=== PATIENT | female | born 1935 | race Caucasian/White ===

== ENCOUNTER 2017-03-08 05:33 | Inpatient (IN) ==
[2017-03-08] MEDS ORDERED: ONDANSETRON 4 MG/2 ML VIAL IV STA ×2 (06:06→08:45)
--- NOTE | 2017-03-08 06:16 | Emergency Department Note ---
Vishal Mar Manpreet, am scribing for, and in the presence of, Anshul Loaiza MD 06: 11. Fadia Mar James D, MD, personally performed the services described in this documentation, ascribed by Laurent Rodgers in my presence, and it is both accurate and complete 614 . Arrival - Arrival Chief Complaint: Abdominal / Flank Pain Stated Complaint: right side pain nausea ED Nursing Triage Note: TO ER PER WHEELCHAIR WITH C/O RIGHT LOWER QUADRANT ABD PAIN FOR THE PAST FEW DAYS BUT BECAME WORSE LAST NIGHT/EARLY THIS AM. ALSO REPORTS THAT SHE HAS BEEN VERY NAUSEATED SINCE PAIN HAS BECOME WORSE BUT HAS NOT VOMITTED. Mode of Arrival: Wheelchair Limitations: No Limitations Source: Patient Time Seen by Provider: 03/08/17 06:02 - History of Present Illness HPI Narrative: Pt is a 81 y/o female, with PMHx of HTN, NIDDM, asthma, COPD, and bronchitis, who presents to the ED with CC of right sided Abd pain onset 03/06/17 but worsened last night. Pt c/o nausea with the pain but denies V/D, dysuria, or respiratory problems. Pt states she is on 2 inhalers at home for her "breathing problems." Dr. Treadwell is pt's PCP. No other pains/complaints reported to the ED> Onset (ago): day(s) (03/06/17) Consistency: constant Severity: moderate Severity scale (1-10): 3 Quality: cramping Allergies/Adverse Reactions: Allergies Allergy/AdvReac Type Severity Reaction Status Date / Time Iodinated Contrast Media - Allergy Unknown Difficulty Verified 03/08/17 05:55 Oral and Breathing [Iodinated Contrast Media - IV Dye] meperidine [From Demerol] Allergy RASH Verified 03/08/17 05:56 Home Medications: Home Medications Medication Instructions Recorded Confirmed Type Escitalopram [Lexapro] 20 mg PO DAILY 10/12/15 03/08/17 History Fluticasone/Salmeterol 500-50 1 puff INH BID 10/12/15 03/08/17 History [Advair 500-50] Levothyroxine Tab [Synthroid Tab] 112 mcg PO DAILY@0700 10/12/15 03/08/17 History Methocarbamol Tab [Robaxin Tab] 1,000 mg PO BID 10/12/15 03/08/17 History Montelukast Tab [Singulair Tab] 10 mg PO DAILY 10/12/15 03/08/17 History Potassium Chloride [K-Tab ER] 10 meq PO DAILY 10/12/15 03/08/17 History Ranitidine Tab [Zantac Tab] 150 mg PO BEDTIME 10/12/15 03/08/17 History Simvastatin [Zocor] 20 mg PO BEDTIME 10/12/15 03/08/17 History Tiotropium Inhalation [Spiriva 18 mcg INH DAILY 10/12/15 03/08/17 History Handihaler] Triamterene/Hctz 75-50 Tab 0.5 tablet PO DAILY 10/12/15 03/08/17 History [Maxzide 75-50] clonazePAM TAB [KlonoPIN] 0.5 mg PO DAILY 10/12/15 03/08/17 History Atenolol 50 mg PO BID 03/08/17 03/08/17 History Eszopiclone 3 mg PO BEDTIME 03/08/17 03/08/17 History Ferrous Sulfate Tab [Feosol 325 mg PO DAILY 03/08/17 03/08/17 History Original Tab] Pantoprazole Tab [Protonix Tab] 40 mg PO DAILY 03/08/17 03/08/17 History cloNIDine TAB [Catapres Tab] 0.1 mg PO BID 03/08/17 03/08/17 History guaiFENesin ER TAB [Mucinex] 600 mg PO BID PRN 03/08/17 03/08/17 History metFORMIN [Glucophage] 500 mg PO BID W/MEALS 03/08/17 03/08/17 History Review of System - Review of System 12 point system: reviewed and no additional remarkable complaints except as stated - Review of System Constitutional: Absent: chills, diaphoresis, fever Respiratory: Absent: cough, respiratory distress Cardiovascular: Absent: chest pain Gastrointestinal: Present: abdominal pain, nausea. Absent: vomiting, diarrhea Musculoskeletal: Absent: back pain, leg pain Neurological: Absent: headache, weakness, numbness, paresthesias Medical,Surgical,& Family Hx - Medical History Cardio: History of: Hypertension Endocrine: History of: Diabetes Mellitus (NIDDM) Respiratory: History of: Asthma, Bronchitis, COPD Gastrointestinal: History of: GERD - Social History Smoking Status: Never smoker Frequency of Alcohol Use: None Type of Drug Use: None Exam Vital Signs: Vital Signs Temperature 97.1 F L 03/08/17 05:43 Pulse Rate 72 03/08/17 11:43 Respiratory Rate 18 03/08/17 11:43 Blood Pressure 196/81 03/08/17 11:43 O2 Sat by Pulse Oximetry 95 03/08/17 11:43 GENERAL: This is a well-nourished well-developed white female in no apparent distress. VITAL SIGNS: Reviewed HEENT: Head is atraumatic and normocephalic. Pupils are equal round react to light. Extraocular movements are intact. Oropharynx is benign with moist mucous membranes. NECK: Neck is soft and supple without tenderness. There are no masses. There is no lymphadenopathy. LUNGS: Lungs are clear to auscultation. Chest rises symmetrically. There is no chest wall tenderness. CV: Heart is regular rate and rhythm without murmurs rubs or gallops. ABDOMEN: Abdomen is soft, tender to palpation right lower quadrant without rebound or guarding. There are no abdominal abnormal masses palpated. There is no organomegaly. Bowel sounds are present and active. SKIN: Skin is warm and dry. No rash. EXTREMITIES: Patient has full range of motion without tenderness. There is no pedal edema. NEUROLOGIC: Awake alert and oriented 4. Cranial nerves II through XII are intact. Motor is 5 over 5 in all extremities bilaterally. Course - Consultations Consultation #1: Discussed with Dr. holguin. Patient will be seen in the emergency department. Time: 09:28 Consultation #2: Discussed with hospitalist. Patient will be admitted to their service. Time: 12:08 Results - Labs CBC & BMP: 03/08/17 06:21 03/08/17 06:21 Lab Results: I have reviewed the patients labs - Diagnostic Findings Procedure: Abdominal x-ray: image reviewed by me (Nonspecific gas pattern, no free air.), Chest x-ray: image reviewed by me (No infiltrates, no pleural effusions.), CT Abdomen and Pelvis: image reviewed by me (No acute intra- abdominal pathology peer) Disposition Clinical Impression: Right lower quadrant abdominal pain, Possible diverticulitis Case discussed with: patient, patient's family Condition: Stable
[2017-03-08 06:47] LABS: Basophils # 0.1 10*3/uL (0.0-0.2); Basophils % 0.4 % (0.0-0.8); Eosinophils # 0.1 10*3/uL (0.0-0.87); Eosinophils % 0.8 % (0.00-10.9); Hematocrit 39.1 VOL% (35.7-47.0); Hemoglobin 13.7 GM/DL (12.0-16.0); Immature Granulocytes % 0.3 %; Immature Granulocytes Absolute 0.04 #; Lymphocytes # 4.4 10*3/uL (1.4-4.0); Lymphocytes % 36.5 % (21.3-54.2); Mean Corpuscular Hemoglobin 31 PG (27-34); Mean Corpuscular Volume 89.5 FL (87-102); Mean Platelet Volume 10.6 FL (9.6-12.0); Monocytes # 0.9 10*3/uL (0.11-0.8); Monocytes % 7.3 % (1.7-12.7); Neutrophils # 6.7 10*3/uL (1.4-7.4); Neutrophils % 54.7 % (38.7-73.9); Platelet Count 281 T/CUMM (130-400); Red Blood Count 4.37 MC/CUMM (3.8-5.5); Red Cell Distribution Width 11.6 % (9.3-17.3); White Blood Count 12.2 T/CUMM (4-12)
[2017-03-08] MEDS ORDERED: ONDANSETRON 4 MG/2 ML VIAL ONE ×2 (07:01→08:49)
[2017-03-08] MEDS ORDERED: hydrALAZINE 20 MG/1 ML VIAL IV STA (07:19)
[2017-03-08] MEDS ORDERED: hydrALAZINE 20 MG/1 ML VIAL ONE (07:23)
[2017-03-08 07:28] LABS: Apearance,Urine CLEAR (Clear); Bacteria,Urine Occasional /HPF (Few); Bilirubin,Urine Negative (Negative); Blood, Urine Negative (Negative); Glucose,Urine (UA) 50 mg/dL (Negative); Ketones,Urine Negative (Negative); Mucus,Urine Occasional /LPF (Occasional); Nitrite,Urine Negative (Negative); Protein,Urine 100 MG/DL; RBC,Urine 1 /HPF (0-4); Squamous Epithelial Cell,Urine Occasional /HPF (0-10); Urine Color Straw (Yellow); Urine Specific Gravity 1.009 (1.001-1.035); Urine Urobilinogen < 2.0 EU/DL (0.2-1.0); WBC,Urine <1 /HPF (0-6)
[2017-03-08 07:30] LABS: Albumin 3.8 G/DL (3.4-5.0); Bilirubin,Total 0.5 MG/DL (0.2-1.0); Calcium 9.4 MG/DL (8.5-10.1); Osmolality,Calculated 278.7 MOS/KG (273-304); Potassium 3.4 MMOL/L (3.5-5.1); Total Protein 7.1 G/DL (6.4-8.3)
--- NOTE | 2017-03-08 08:03 | CT Report ---
CT abdomen pelvis Indication: Abdominal pain Comparison: None available Technique: Axial CT imaging of the abdomen and pelvis is performed without contrast. Findings: Cardiac and lung bases are within normal limits CT abdomen: The liver spleen pancreas and adrenal glands are normal in size and density. No evidence of focal lesion is demonstrated in these solid organs. Kidneys are normal in size with numerous cyst similar to previous exam. No evidence of hydronephrosis or nephrolithiasis is seen. The bowel caliber is normal and no wall thickening or adjacent inflammatory change is seen. No evidence of free fluid or free air is present. CT pelvis: Multiple diverticula are present in the colon most prominent in the sigmoid colon. No evidence of diverticulitis is seen. Remaining pelvic bowel and bladder appear within normal limits. The pelvic organs show no evidence of abnormality. Impression: No evidence of acute process demonstrated. This CT exam was performed using one or more the following dose reduction techniques: Automated exposure control, adjustment of the MA and/or KV according to patient size, or use of iterative reconstruction technique. PROCEDURE INTERPRETED AT [facility] DEPARTMENT OF RADIOLOGY Final Report Signed by: Dr. Alexis Terrazas
--- NOTE | 2017-03-08 08:17 | XRay Report ---
EXAM: XR abdomen 2V CLINICAL INDICATION: Abdominal Pain COMPARISON: None Findings: No gastric distention. [No abnormally dilated small bowel loops are identified to suggest obstruction. No free intraperitoneal air.] Visceral shadows are normal. No abnormal focal soft tissue masses or calcific densities identified in the abdomen or pelvis. Degenerative changes throughout the spinal axis are noted. IMPRESSION: No acute findings PROCEDURE INTERPRETED AT [facility] DEPARTMENT OF RADIOLOGY Final Report Signed by: Gabe Echevarria
--- NOTE | 2017-03-08 08:19 | XRay Report ---
XR chest 1V portable Indication: Abdominal pain Comparison: 13 October 2015 Findings: The heart and mediastinum are normal in size and configuration. The pulmonary vascularity is normal in caliber. Lung volumes are increased with prominent bronchial markings. No lung infiltrates, effusions, pneumothorax or other abnormality is demonstrated. Impression: Chronic lung changes. No acute process or significant change. PROCEDURE INTERPRETED AT [facility] DEPARTMENT OF RADIOLOGY Final Report Signed by: Dr. Alexis Terrazas
[2017-03-08] MEDS ORDERED: HYDROmorphone 2 MG/1 ML VIAL ONE (09:35)
[2017-03-08] MEDS ORDERED: HYDROmorphone 2 MG/1 ML VIAL IV STA (09:36)
--- NOTE | 2017-03-08 10:37 | General Surgery Consult Note ---
Assessment and Plan (1) Right lower quadrant abdominal pain Status: Acute Assessment and plan: The patient is an 81-year-old female with past medical history of diverticulitis. Considering leukocytosis and patient presentation, I feel diverticulitis is the most likely diagnosis. No evidence of complications at this time. Recommend IV fluids, bowel rest with sips only, IV ciprofloxacin and Flagyl, and monitoring. Repeat CBC in a.m. Dr. Carlisle to follow. Current Visit: Yes History of Present Illness Chief complaint: RLQ pain History of present illness: Ms. Triplett is a 81 year old female with past medical history of diverticulitis, COPD, asthma, hypertension, and other comorbidities who follows with Dr. Treadwell who is presenting to the emergency department with 2-3 days of progressive right lower quadrant pain. Patient has received pain medication and is a fair historian: Her is at the bedside assisting. Reports she has right lower quadrant pain for 2-3 days which got significantly worse last night. She has a history of diverticulitis has been treated with oral antibiotics outpatient only. She reports never requiring any hospitalization. Regardless, she reports associated nausea without vomiting; no fever, chills, diarrhea, constipation, melena, or hematochezia. Home Medications Medication Instructions Recorded Confirmed Type Escitalopram [Lexapro] 20 mg PO DAILY 10/12/15 03/08/17 History Fluticasone/Salmeterol 500-50 1 puff INH BID 10/12/15 03/08/17 History [Advair 500-50] Levothyroxine Tab [Synthroid Tab] 112 mcg PO DAILY@0700 10/12/15 03/08/17 History Methocarbamol Tab [Robaxin Tab] 1,000 mg PO BID 10/12/15 03/08/17 History Montelukast Tab [Singulair Tab] 10 mg PO DAILY 10/12/15 03/08/17 History Potassium Chloride [K-Tab ER] 10 meq PO DAILY 10/12/15 03/08/17 History Ranitidine Tab [Zantac Tab] 150 mg PO BEDTIME 10/12/15 03/08/17 History Simvastatin [Zocor] 20 mg PO BEDTIME 10/12/15 03/08/17 History Tiotropium Inhalation [Spiriva 18 mcg INH DAILY 10/12/15 03/08/17 History Handihaler] Triamterene/Hctz 75-50 Tab 0.5 tablet PO DAILY 10/12/15 03/08/17 History [Maxzide 75-50] clonazePAM TAB [KlonoPIN] 0.5 mg PO DAILY 10/12/15 03/08/17 History Atenolol 50 mg PO BID 03/08/17 03/08/17 History Eszopiclone 3 mg PO BEDTIME 03/08/17 03/08/17 History Ferrous Sulfate Tab [Feosol 325 mg PO DAILY 03/08/17 03/08/17 History Original Tab] Pantoprazole Tab [Protonix Tab] 40 mg PO DAILY 03/08/17 03/08/17 History cloNIDine TAB [Catapres Tab] 0.1 mg PO BID 03/08/17 03/08/17 History guaiFENesin ER TAB [Mucinex] 600 mg PO BID PRN 03/08/17 03/08/17 History metFORMIN [Glucophage] 500 mg PO BID W/MEALS 03/08/17 03/08/17 History Allergies Allergy/AdvReac Type Severity Reaction Status Date / Time Iodinated Contrast Media - Allergy Unknown Difficulty Verified 03/08/17 05:55 Oral and Breathing [Iodinated Contrast Media - IV Dye] meperidine [From Demerol] Allergy RASH Verified 03/08/17 05:56 Medical,Surgical,& Family Hx - Medical History Cardio: History of: Hypertension Endocrine: History of: Diabetes Mellitus (NIDDM) Respiratory: History of: Asthma, Bronchitis, COPD Gastrointestinal: History of: Diverticulitis/ Diverticulosis, GERD - Surgical History Abdominal Surgeries: Surgical HX of: Appendectomy, Cholecystectomy Reproductive Surgeries: Surgical HX of;: Hysterectomy Orthopedic Surgeries: Surgical HX of;: Total Knee Replacement Additional Surgical History: Cataract - Family History Additional Family History: Mother glaucoma. Son diabetes. Father CAD and nephrolithiasis. Daughter with breast cancer. - Social History Smoking Status: Never smoker Frequency of Alcohol Use: None Type of Drug Use: None Marital Status: - Constitutional Constitutional: Present: as per HPI - Cardiovascular Cardiovascular: Absent: chest pain at rest, chest pain with activity, dyspnea on exertion, orthopnea - Respiratory Respiratory: Present: other (No change in pulmonary status) - Gastrointestinal Gastrointestinal: Present: as per HPI - Genitourinary Genitourinary: Absent: dysuria, flank pain, hematuria Hematologic/Lymphatic: Absent: easy bleeding, easy bruising Exam - Constitutional Vitals: Period Temp Pulse Resp BP Sys/Dean Pulse Ox Last 24 Hr 97.1 F-97.1 F 69-80 18-20 142-257/82-140 95-100 General appearance: no acute distress - Head Head exam: Present: atraumatic - Eye Eye exam: Absent: scleral icterus - Respiratory Respiratory exam: Present: other (Diminished breath sounds; no adventitious sounds noted) - Cardiovascular Cardiovascular exam: Present: RRR - GI/Abdominal GI/Abdominal exam: Present: normal bowel sounds, tenderness (Tenderness with deep palpation to the right lower quadrant; no rebound or guarding.), soft. Absent: distended - Extremities Exam Extremities exam: Absent: calf tenderness, edema - Neurological Exam Neurological exam: Present: alert, oriented X3 Speech: Present: normal - Skin Skin exam: Present: normal color Results - Labs CBC & BMP: 03/08/17 06:21 03/08/17 06:21 - Diagnostic Findings Procedure: CT Abdomen and Pelvis: image reviewed by me, report reviewed by me ( No IV contrast; diverticular disease noted; no obvious areas of ablation or abscess formation), X-ray: image reviewed by me, report reviewed by me ( Abdominal x-ray)
--- NOTE | 2017-03-08 12:45 | Hospitalist History & Physical ---
Assessment and Plan - Time spent with patient Time spent with patient: Greater than 30 minutes (1) Right lower quadrant abdominal pain Status: Acute Assessment and plan: Admit 03/08/17 Start IV levaquin and flagyl IV fluids Consult GI PRN pain management NPO except sips of water or ice and medications Discuss with Dr Long for further recommendations with care Current Visit: Yes History of Present Illness Chief complaint: right sided lower abdominal pain History of present illness: Ms. Triplett is a 81 year old white female w/PMHx HTN, DM, COPD, Asthma, bronchitis , diverticulosis/diverticulitis presented to the ED for further evaluation of right sided lower abdominal pain with associated nausea WITHOUT vomiting. Denies shortness of breath, chest pain, or diarrhea. IN ED: WBC 12.2, K 3.4, Glucose 147, Creatinine 1.10, urinalysis negative for infection. ABd xr: nothing acute. Abd/pel CT: nothing acute, multiple diverticula. CXR: nothing acute. General surgery was consulted and evaluated Ms Triplett with recommendation of fluids, cipro, flagyl, NPO except sips and repeat labs in a.m and greatly appreciate his assistance with patient. Hospital Medicine was consulted for admission and further evaluation and treatment. After discussion with Dr Loaiza in ED and Dr Long with Hospital Medicine and agree to admit patient for further evaluation and treatment of diverticulitis. Home Medications Medication Instructions Recorded Confirmed Type Escitalopram [Lexapro] 20 mg PO DAILY 10/12/15 03/08/17 History Fluticasone/Salmeterol 500-50 1 puff INH BID 10/12/15 03/08/17 History [Advair 500-50] Levothyroxine Tab [Synthroid Tab] 112 mcg PO DAILY@0700 10/12/15 03/08/17 History Methocarbamol Tab [Robaxin Tab] 1,000 mg PO BID 10/12/15 03/08/17 History Montelukast Tab [Singulair Tab] 10 mg PO DAILY 10/12/15 03/08/17 History Potassium Chloride [K-Tab ER] 10 meq PO DAILY 10/12/15 03/08/17 History Ranitidine Tab [Zantac Tab] 150 mg PO BEDTIME 10/12/15 03/08/17 History Simvastatin [Zocor] 20 mg PO BEDTIME 10/12/15 03/08/17 History Tiotropium Inhalation [Spiriva 18 mcg INH DAILY 10/12/15 03/08/17 History Handihaler] Triamterene/Hctz 75-50 Tab 0.5 tablet PO DAILY 10/12/15 03/08/17 History [Maxzide 75-50] clonazePAM TAB [KlonoPIN] 0.5 mg PO DAILY 10/12/15 03/08/17 History Atenolol 50 mg PO BID 03/08/17 03/08/17 History Eszopiclone 3 mg PO BEDTIME 03/08/17 03/08/17 History Ferrous Sulfate Tab [Feosol 325 mg PO DAILY 03/08/17 03/08/17 History Original Tab] Pantoprazole Tab [Protonix Tab] 40 mg PO DAILY 03/08/17 03/08/17 History cloNIDine TAB [Catapres Tab] 0.1 mg PO BID 03/08/17 03/08/17 History guaiFENesin ER TAB [Mucinex] 600 mg PO BID PRN 03/08/17 03/08/17 History metFORMIN [Glucophage] 500 mg PO BID W/MEALS 03/08/17 03/08/17 History Allergies Allergy/AdvReac Type Severity Reaction Status Date / Time Iodinated Contrast Media - Allergy Unknown Difficulty Verified 03/08/17 05:55 Oral and Breathing [Iodinated Contrast Media - IV Dye] meperidine [From Demerol] Allergy RASH Verified 03/08/17 05:56 Medical,Surgical,& Family Hx - Medical History Cardio: History of: Hypertension Endocrine: History of: Diabetes Mellitus (NIDDM) Respiratory: History of: Asthma, Bronchitis, COPD Gastrointestinal: History of: Diverticulitis/ Diverticulosis, GERD - Surgical History Abdominal Surgeries: Surgical HX of: Appendectomy, Cholecystectomy Reproductive Surgeries: Surgical HX of;: Hysterectomy Orthopedic Surgeries: Surgical HX of;: Total Knee Replacement - Social History Smoking Status: Never smoker Frequency of Alcohol Use: None Type of Drug Use: None Marital Status: Lives With:: Spouse Functional capacity: uses cane/walker 12 point system: reviewed and no additional remarkable complaints except as stated - Constitutional Constitutional: Absent: chills, fever(s) - Cardiovascular Cardiovascular: Absent: chest pain at rest, chest pain with activity, dyspnea, dyspnea on exertion - Gastrointestinal Gastrointestinal: Present: abdominal pain, nausea. Absent: constipation, diarrhea, hematochezia, vomiting - Genitourinary Genitourinary: Absent: dysuria, flank pain Exam - Constitutional Vitals: Period Temp Pulse Resp BP Sys/Dean Pulse Ox Last 24 Hr 97.1 F-97.1 F 69-80 18-20 142-257/72-140 95-100 General appearance: normal weight, no acute distress - Head Head exam: Present: normal inspection - Eye Eye exam: Present: EOMI Pupils: Present: JACE - Neck Neck exam: Present: normal inspection. Absent: thyromegaly - Respiratory Respiratory exam: Present: clear to auscultation bilaterally. Absent: rhonchi, stridor, wheezes - Cardiovascular Cardiovascular exam: Present: regular rate and rhythm - GI/Abdominal GI/Abdominal exam: Present: normal bowel sounds, tenderness, soft. Absent: firm , guarding, rebound - Extremities Exam Extremities exam: Present: normal inspection, full ROM. Absent: edema - Neurological Exam Neurological exam: Present: alert, oriented X3, CN II-XII intact - Psychiatric Psychiatric exam: Present: normal affect, normal mood. Absent: agitated, anxious - Skin Skin exam: Present: normal color, warm, dry Results - Labs CBC & BMP: 03/08/17 06:21 03/08/17 06:21 Lab Results: I have reviewed the past 24 hour labs - Diagnostic Findings Procedure: Abdominal x-ray: report reviewed by me (nothing acute), Chest x-ray: report reviewed by me (nothing acute), CT Abdomen and Pelvis: report reviewed by me (nothing acute;multiple diverticula)
[2017-03-08] MEDS ORDERED: MAGNESIUM SULF RIDER 2 GM in PREMIX 1 EACH IV PRN (13:43)
[2017-03-08] MEDS ORDERED: ONDANSETRON 4 MG/2 ML VIAL IV PRN (13:43)
[2017-03-08] MEDS ORDERED: MAGNESIUM SULF RIDER 4 GM in PREMIX 1 EACH IV PRN (13:43)
[2017-03-08] MEDS: SODIUM CHLORIDE 0.9% 1,000 ML IV SCH (15:26)
[2017-03-08] MEDS: CIPROFLOXACIN INJ 400 MG in PREMIX 1 EACH IV SCH (15:29)
[2017-03-08] MEDS: IPRATROPIUM 500 MCG/2.5 ML NEB RESP TX SCH ×2 (15:51→19:19)
[2017-03-08] MEDS: TRIAMTERENE/HCTZ 37.5-25 MG TABLET PO SCH (16:14)
[2017-03-08] MEDS: METHOCARBAMOL 500 MG TABLET PO SCH ×2 (16:14→21:01)
[2017-03-08] MEDS: cloNIDine 0.1 MG TABLET PO SCH ×2 (16:15→21:02)
[2017-03-08] MEDS: MONTELUKAST 10 MG TABLET PO SCH (16:15)
[2017-03-08] MEDS: clonazePAM 0.5 MG TABLET PO SCH (16:15)
[2017-03-08] MEDS: ATENOLOL 50 MG TABLET PO SCH ×2 (16:15→21:02)
[2017-03-08] MEDS: POTASSIUM CHLORIDE 20 MEQ TABLET PO PRN ×3 (16:15→23:24)
[2017-03-08] MEDS: ESCITALOPRAM 10 MG TABLET PO SCH (16:15)
[2017-03-08] MEDS: FLUTICASONE/SALMETEROL 500-50 DISKUS 14 DOSE INH SCH ×2 (16:16→21:09)
[2017-03-08] MEDS: POTASSIUM CHLORIDE 10 MEQ TABLET PO SCH (16:17)
[2017-03-08] MEDS: MORPHINE 2 MG/1 ML SYRINGE IV PRN (16:17)
[2017-03-08] MEDS: metroNIDAZOLE INJ 500 MG in PREMIX 1 EACH IV SCH ×2 (17:35→21:04)
[2017-03-08] MEDS: INSULIN LISPRO 100 UNIT/ML SUBCUT SCH (21:01)
[2017-03-08] MEDS: FAMOTIDINE 20 MG TABLET PO SCH (21:02)
[2017-03-09] MEDS: CIPROFLOXACIN INJ 400 MG in PREMIX 1 EACH IV SCH ×2 (01:46→14:58)
[2017-03-09] MEDS: metroNIDAZOLE INJ 500 MG in PREMIX 1 EACH IV SCH ×4 (03:58→21:14)
[2017-03-09] MEDS: LEVOTHYROXINE 112 MCG TABLET PO SCH (06:03)
[2017-03-09] MEDS: SODIUM CHLORIDE 0.9% 1,000 ML IV SCH ×3 (06:04→21:10)
[2017-03-09 06:25] LABS: Basophils % 0.4 % (0.0-0.8); Eosinophils # 0.1 10*3/uL (0.0-0.87); Eosinophils % 0.8 % (0.00-10.9); Hematocrit 35.4 VOL% (35.7-47.0); Immature Granulocytes % 0.1 %; Immature Granulocytes Absolute 0.01 #; Lymphocytes # 3.7 10*3/uL (1.4-4.0); Lymphocytes % 36.6 % (21.3-54.2); Mean Corpuscular HGB Conc 33.9 GM/DL (32-36); Mean Corpuscular Hemoglobin 32 PG (27-34); Mean Corpuscular Volume 92.9 FL (87-102); Mean Platelet Volume 10.7 FL (9.6-12.0); Monocytes # 0.9 10*3/uL (0.11-0.8); Monocytes % 8.9 % (1.7-12.7); Neutrophils # 5.3 10*3/uL (1.4-7.4); Neutrophils % 53.2 % (38.7-73.9); Platelet Count 247 T/CUMM (130-400); Red Blood Count 3.81 MC/CUMM (3.8-5.5); Red Cell Distribution Width 11.9 % (9.3-17.3)
[2017-03-09 06:54] LABS: Calcium 8.7 MG/DL (8.5-10.1); Magnesium 2.1 MG/DL (1.8-2.4); Osmolality,Calculated 280.5 MOS/KG (273-304); Potassium 4.4 MMOL/L (3.5-5.1)
[2017-03-09] MEDS: IPRATROPIUM 500 MCG/2.5 ML NEB RESP TX SCH ×4 (07:45→19:48)
[2017-03-09] MEDS: PANTOPRAZOLE 40 MG VIAL IV SCH (08:33)
[2017-03-09] MEDS: INSULIN LISPRO 100 UNIT/ML SUBCUT SCH ×4 (09:18→21:10)
[2017-03-09] MEDS: POTASSIUM CHLORIDE 10 MEQ TABLET PO SCH (09:19)
[2017-03-09] MEDS: METHOCARBAMOL 500 MG TABLET PO SCH ×2 (09:19→20:51)
[2017-03-09] MEDS: MONTELUKAST 10 MG TABLET PO SCH (09:19)
[2017-03-09] MEDS: ATENOLOL 50 MG TABLET PO SCH ×2 (09:19→20:52)
[2017-03-09] MEDS: ESCITALOPRAM 10 MG TABLET PO SCH (09:20)
[2017-03-09] MEDS: FLUTICASONE/SALMETEROL 500-50 DISKUS 14 DOSE INH SCH ×2 (09:20→20:56)
[2017-03-09] MEDS: cloNIDine 0.1 MG TABLET PO SCH ×2 (09:20→20:52)
[2017-03-09] MEDS: clonazePAM 0.5 MG TABLET PO SCH (09:20)
[2017-03-09] MEDS: TRIAMTERENE/HCTZ 37.5-25 MG TABLET PO SCH (09:20)
--- NOTE | 2017-03-09 14:30 | Hospitalist Progress Note ---
Assessment and Plan (1) Diverticulitis Status: Acute Assessment and plan: Continue antibiotics for nausea but the assist the patient tomorrow. Current Visit: Yes (2) Right lower quadrant abdominal pain Status: Acute Assessment and plan: Likely diverticulosis of kidney stones cannot be ruled Current Visit: Yes Hospitalist: Subjective Interval history: Patient was seen interviewed and examined and chart has been reviewed, admitted to the hospital with abdominal pain and left right flank pain. This is quite subsided by this time. She also did have a leukocytosis that is now abdomen normalized about 10. However noticed that her BUN is gone up to 20 and creatinine 1.5 she is getting IV fluids. Most certain as to why the acute kidney injury given the fact that she is getting fluids and her blood pressures been quite optimal. It is thought that this may have been radiculitis by the family seems to think it is a kidney stone. No hematuria and the CT scan did not demonstrate a kidney stone Exam - Constitutional Vitals: Period Temp Pulse Resp BP Sys/Dean Pulse Ox Last 24 Hr 97.2 F-98.8 F 60-71 17-20 127-170/55-68 95-99 General appearance: over weight - Head Head exam: Present: normocephalic - Eye Eye exam: Present: EOMI, other Pupils: Present: JACE (Anicteric sclera) - ENT ENT exam: Present: normal exam - Neck Neck exam: Present: normal inspection - Respiratory Respiratory exam: Present: clear to auscultation bilaterally - Cardiovascular Cardiovascular exam: Present: regular rate and rhythm - GI/Abdominal GI/Abdominal exam: Present: normal bowel sounds, soft, other (Mild right flank discomfort mild right lower quadrant and left lower quadrant discomfort) - Extremities Exam Extremities exam: Present: full ROM - Back Exam Back exam: Present: normal inspection - Neurological Exam Neurological exam: Present: alert, oriented X3, CN II-XII intact - Psychiatric Psychiatric exam: Present: normal affect, normal mood - Skin Skin exam: Present: normal color, warm, dry Results - Labs CBC & BMP: 03/09/17 06:06 03/09/17 06:06 Lab Results: I have reviewed the past 24 hour labs
[2017-03-09] MEDS: FAMOTIDINE 20 MG TABLET PO SCH (20:52)
[2017-03-10] MEDS: CIPROFLOXACIN INJ 400 MG in PREMIX 1 EACH IV SCH ×2 (01:40→16:21)
[2017-03-10] MEDS: MORPHINE 2 MG/1 ML SYRINGE IV PRN ×4 (03:26→21:18)
[2017-03-10] MEDS: metroNIDAZOLE INJ 500 MG in PREMIX 1 EACH IV SCH ×4 (03:27→21:12)
[2017-03-10] MEDS: LEVOTHYROXINE 112 MCG TABLET PO SCH (06:14)
[2017-03-10 07:00] LABS: Basophils # 0.1 10*3/uL (0.0-0.2); Basophils % 0.6 % (0.0-0.8); Eosinophils # 0.1 10*3/uL (0.0-0.87); Eosinophils % 1.4 % (0.00-10.9); Hematocrit 37.3 VOL% (35.7-47.0); Hemoglobin 12.8 GM/DL (12.0-16.0); Immature Granulocytes % 0.4 %; Immature Granulocytes Absolute 0.04 #; Lymphocytes # 3.1 10*3/uL (1.4-4.0); Lymphocytes % 31.1 % (21.3-54.2); Mean Corpuscular HGB Conc 34.3 GM/DL (32-36); Mean Corpuscular Hemoglobin 32 PG (27-34); Mean Corpuscular Volume 92.6 FL (87-102); Mean Platelet Volume 11.3 FL (9.6-12.0); Monocytes # 0.9 10*3/uL (0.11-0.8); Monocytes % 8.5 % (1.7-12.7); Neutrophils # 5.9 10*3/uL (1.4-7.4); Platelet Count 246 T/CUMM (130-400); Red Blood Count 4.03 MC/CUMM (3.8-5.5); Red Cell Distribution Width 11.8 % (9.3-17.3); White Blood Count 10.1 T/CUMM (4-12)
[2017-03-10 07:31] LABS: Calcium 8.9 MG/DL (8.5-10.1); Magnesium 1.9 MG/DL (1.8-2.4); Osmolality,Calculated 274.8 MOS/KG (273-304); Potassium 3.9 MMOL/L (3.5-5.1)
[2017-03-10] MEDS: IPRATROPIUM 500 MCG/2.5 ML NEB RESP TX SCH ×4 (07:56→19:19)
[2017-03-10] MEDS: clonazePAM 0.5 MG TABLET PO SCH (08:48)
[2017-03-10] MEDS: PANTOPRAZOLE 40 MG VIAL IV SCH (08:48)
[2017-03-10] MEDS: POTASSIUM CHLORIDE 10 MEQ TABLET PO SCH (08:48)
[2017-03-10] MEDS: METHOCARBAMOL 500 MG TABLET PO SCH ×2 (08:48→21:12)
[2017-03-10] MEDS: POTASSIUM CHLORIDE 20 MEQ TABLET PO PRN (08:49)
[2017-03-10] MEDS: cloNIDine 0.1 MG TABLET PO SCH ×2 (08:49→21:13)
[2017-03-10] MEDS: MONTELUKAST 10 MG TABLET PO SCH (08:49)
[2017-03-10] MEDS: TRIAMTERENE/HCTZ 37.5-25 MG TABLET PO SCH (08:49)
[2017-03-10] MEDS: ESCITALOPRAM 10 MG TABLET PO SCH (08:49)
[2017-03-10] MEDS: INSULIN LISPRO 100 UNIT/ML SUBCUT SCH ×4 (08:50→23:12)
[2017-03-10] MEDS: SODIUM CHLORIDE 0.9% 1,000 ML IV SCH ×2 (08:58→21:25)
[2017-03-10] MEDS: ATENOLOL 50 MG TABLET PO SCH ×2 (10:43→21:13)
[2017-03-10] MEDS: FLUTICASONE/SALMETEROL 500-50 DISKUS 14 DOSE INH SCH ×2 (10:44→21:18)
--- NOTE | 2017-03-10 12:38 | Hospitalist Progress Note ---
Assessment and Plan (1) Diverticulitis Status: Acute Assessment and plan: Continue antibiotics for nausea but the assist the patient tomorrow. She will come from complaining of more pain they would take a KUB to evaluate for the pattern of gaseous in status of the and into the intestines. During my observation there was a gush of air from the right lower quadrant as a pressed on it. May be air trapping in. 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 Current Visit: Yes (2) Right lower quadrant abdominal pain Status: Acute Assessment and plan: Likely diverticulosis of kidney stones cannot be ruled Current Visit: Yes (3) Azotemia Status: Acute Assessment and plan: This was quite pronounced yesterday but this resolved today after fluid resuscitation Current Visit: Yes Hospitalist: Subjective Interval history: Patient has been seen interviewed and examined and chart has been reviewed. This morning she is complaining complaining more of pain in the right flank and also right costovertebral angle region. But is more was talking to her she is also complaining of pain in the heel. I learned from her daughter who is also in the room that this patient had been having falls at home multiple times. This be a compression fracture? She denies any back pains. She does have tenderness in the substance of the right hip however. There is no lateral rotation of the right lower extremity and the length of the extremities and the sound. Exam - Constitutional Vitals: Period Temp Pulse Resp BP Sys/Dean Pulse Ox Last 24 Hr 97.4 F-98.5 F 61-69 16-18 130-151/70-82 95-99 General appearance: over weight - Head Head exam: Present: normocephalic, atraumatic - Eye Eye exam: Present: EOMI, other Pupils: Present: JACE (Anicteric sclera) - Respiratory Respiratory exam: Present: clear to auscultation bilaterally (No wheezing no rales) - Cardiovascular Cardiovascular exam: Present: regular rate and rhythm - GI/Abdominal GI/Abdominal exam: Present: normal bowel sounds, tenderness (Noted most in the right flank and right costovertebral angle. As of tenderness in the substance of the right hip. I see no rash on the skin to suggest possibility of incoming shingles.), soft - Extremities Exam Extremities exam: Present: full ROM - Neurological Exam Neurological exam: Present: alert, oriented X3, CN II-XII intact - Psychiatric Psychiatric exam: Present: normal affect, normal mood - Skin Skin exam: Present: normal color, warm, dry Results - Labs CBC & BMP: 03/10/17 05:46 03/10/17 05:46 Lab Results: I have reviewed the past 24 hour labs (The azotemia has normalized)
[2017-03-10 18:38] LABS: Apearance,Urine CLEAR (Clear); Bacteria,Urine Occasional /HPF (Few); Bilirubin,Urine Negative (Negative); Blood, Urine Negative (Negative); Glucose,Urine (UA) Negative (Negative); Ketones,Urine Negative (Negative); Nitrite,Urine Negative (Negative); Protein,Urine Negative; Squamous Epithelial Cell,Urine Occasional /HPF (0-10); Urine Color Yellow (Yellow); Urine Specific Gravity 1.006 (1.001-1.035); Urine Urobilinogen < 2.0 EU/DL (0.2-1.0); WBC,Urine <1 /HPF (0-6)
[2017-03-10] MEDS: FAMOTIDINE 20 MG TABLET PO SCH (21:13)
[2017-03-11] MEDS: CIPROFLOXACIN INJ 400 MG in PREMIX 1 EACH IV SCH (02:49)
[2017-03-11] MEDS: metroNIDAZOLE INJ 500 MG in PREMIX 1 EACH IV SCH ×2 (03:58→09:36)
[2017-03-11] MEDS: LEVOTHYROXINE 112 MCG TABLET PO SCH (06:12)
[2017-03-11] MEDS: IPRATROPIUM 500 MCG/2.5 ML NEB RESP TX SCH ×4 (07:16→19:34)
[2017-03-11] MEDS: INSULIN LISPRO 100 UNIT/ML SUBCUT SCH ×4 (07:43→23:06)
[2017-03-11] MEDS: METHOCARBAMOL 500 MG TABLET PO SCH ×2 (09:28→20:49)
[2017-03-11] MEDS: ATENOLOL 50 MG TABLET PO SCH ×2 (09:28→20:49)
[2017-03-11] MEDS: TRIAMTERENE/HCTZ 37.5-25 MG TABLET PO SCH (09:29)
[2017-03-11] MEDS: clonazePAM 0.5 MG TABLET PO SCH (09:29)
[2017-03-11] MEDS: POTASSIUM CHLORIDE 10 MEQ TABLET PO SCH (09:29)
[2017-03-11] MEDS: MONTELUKAST 10 MG TABLET PO SCH (09:30)
[2017-03-11] MEDS: ESCITALOPRAM 10 MG TABLET PO SCH (09:30)
[2017-03-11] MEDS: cloNIDine 0.1 MG TABLET PO SCH ×2 (09:30→20:49)
[2017-03-11] MEDS: PANTOPRAZOLE 40 MG VIAL IV SCH (09:38)
[2017-03-11] MEDS: FLUTICASONE/SALMETEROL 500-50 DISKUS 14 DOSE INH SCH ×2 (09:42→20:48)
[2017-03-11] MEDS: SODIUM CHLORIDE 0.9% 1,000 ML IV SCH ×2 (12:48→12:56)
--- NOTE | 2017-03-11 13:56 | Hospitalist Progress Note ---
Assessment and Plan (1) Diverticulitis Status: Acute Assessment and plan: The patient reports in the absence of abdominal pain this a.m. She is requesting diet advancement. We will advance diet to low residue diet and and discontinue intravenous antibiotic coverage as previously ordered. We will decrease IV fluids. Current Visit: Yes (2) Right lower quadrant abdominal pain Status: Acute Assessment and plan: No further episodes of abdominal pain reported. Will continue antibiotic coverage and decrease IVF. Diet has been advanced. Current Visit: Yes Hospitalist: Subjective Interval history: Patient seen and evaluated; chart reviewed. No significant overnight events. Patient is requesting food; we will order low residue diet. Exam - Constitutional Vitals: Period Temp Pulse Resp BP Sys/Dean Pulse Ox Last 24 Hr 97.1 F-98.3 F 60-78 16-20 109-163/59-81 95-100 General appearance: normal weight, no acute distress - Head Head exam: Present: normal inspection, normocephalic, atraumatic - Eye Eye exam: Present: EOMI. Absent: conjunctival injection Pupils: Present: JACE, normal accommodation - ENT ENT exam: Present: normal exam, normal external ear exam, normal oropharynx - Neck Neck exam: Present: normal inspection. Absent: lymphadenopathy, meningismus, tenderness, thyromegaly - Respiratory Respiratory exam: Present: clear to auscultation bilaterally. Absent: rales, rhonchi, stridor, wheezes - Cardiovascular Cardiovascular exam: Present: regular rate and rhythm. Absent: carotid bruit, diastolic murmur, gallop, JVD, rubs, systolic murmur - GI/Abdominal GI/Abdominal exam: Present: normal bowel sounds, soft - Extremities Exam Extremities exam: Absent: normal inspection, normal capillary refill, full ROM, edema - Back Exam Back exam: Present: normal inspection - Neurological Exam Neurological exam: Present: alert, oriented X3, CN II-XII intact - Psychiatric Psychiatric exam: Present: normal affect, normal mood - Skin Skin exam: Present: normal color, warm, dry Results - Labs CBC & BMP: 03/10/17 05:46 03/10/17 05:46 Lab Results: I have reviewed the past 24 hour labs Specialty Discharge - Follow Up or Referrals
[2017-03-11] MEDS ORDERED: SODIUM CHLORIDE 0.9% 1,000 ML IV SCH (14:30)
[2017-03-11] MEDS: CIPROFLOXACIN 500 MG TABLET PO SCH ×2 (14:30→20:49)
[2017-03-11] MEDS: LACTOBACILLUS RHAMNOSUS GG CAPSULE PO SCH ×2 (14:30→20:49)
[2017-03-11] MEDS: metroNIDAZOLE 500 MG TABLET PO SCH ×2 (14:33→20:49)
[2017-03-11] MEDS ORDERED: VALSARTAN 80 MG TABLET PO ONE (16:43)
[2017-03-11] MEDS: FAMOTIDINE 20 MG TABLET PO SCH (20:49)
[2017-03-12] MEDS: LEVOTHYROXINE 112 MCG TABLET PO SCH (07:01)
[2017-03-12 07:37] LABS: Basophils # 0.1 10*3/uL (0.0-0.2); Basophils % 0.5 % (0.0-0.8); Eosinophils # 0.1 10*3/uL (0.0-0.87); Eosinophils % 1.3 % (0.00-10.9); Hematocrit 34.3 VOL% (35.7-47.0); Hemoglobin 11.9 GM/DL (12.0-16.0); Immature Granulocytes % 0.3 %; Immature Granulocytes Absolute 0.03 #; Lymphocytes % 27.9 % (21.3-54.2); Mean Corpuscular HGB Conc 34.7 GM/DL (32-36); Mean Corpuscular Hemoglobin 31 PG (27-34); Mean Corpuscular Volume 90.3 FL (87-102); Mean Platelet Volume 10.7 FL (9.6-12.0); Monocytes # 1.3 10*3/uL (0.11-0.8); Monocytes % 11.9 % (1.7-12.7); Neutrophils # 6.3 10*3/uL (1.4-7.4); Neutrophils % 58.1 % (38.7-73.9); Platelet Count 208 T/CUMM (130-400); Red Cell Distribution Width 11.6 % (9.3-17.3); White Blood Count 10.9 T/CUMM (4-12)
[2017-03-12] MEDS: IPRATROPIUM 500 MCG/2.5 ML NEB RESP TX SCH ×4 (07:43→19:17)
[2017-03-12] MEDS: MORPHINE 2 MG/1 ML SYRINGE IV PRN (07:46)
[2017-03-12 08:24] LABS: Bilirubin,Total 0.6 MG/DL (0.2-1.0); Calcium 9.1 MG/DL (8.5-10.1); Magnesium 1.4 MG/DL (1.8-2.4); Osmolality,Calculated 279.4 MOS/KG (273-304); Phosphorous 3.5 MG/DL (2.5-4.9); Potassium 3.4 MMOL/L (3.5-5.1); Total Protein 5.7 G/DL (6.4-8.3)
[2017-03-12] MEDS: INSULIN LISPRO 100 UNIT/ML SUBCUT SCH ×4 (08:40→21:28)
[2017-03-12] MEDS ORDERED: MAGNESIUM SULF RIDER 4 GM in PREMIX 1 EACH IV PRN ×2 (08:58→09:05)
[2017-03-12] MEDS ORDERED: MAGNESIUM SULF RIDER 2 GM in PREMIX 1 EACH IV PRN ×2 (08:58→09:05)
--- NOTE | 2017-03-12 09:04 | Hospitalist Progress Note ---
<Keeley Jadeda - Last Filed: 03/12/17 09:01> Assessment and Plan (1) Diverticulitis Status: Acute Assessment and plan: The patient reports in the absence of abdominal pain this a.m. She is requesting diet advancement. We will advance diet to low residue diet and and discontinue intravenous antibiotic coverage as previously ordered. We will decrease IV fluids. 03/12-patient is verbalizing intense abdominal pain. Right lower quadrant tenderness noted upon gentle palpation. We will place the patient n.p.o. we will discontinue p.o. antibiotics and resume intravenous antibiotics coverage. We will resume IV fluids and consult gastroenterology for evaluation and further recommendations. Current Visit: Yes (2) Right lower quadrant abdominal pain Status: Acute Assessment and plan: No further episodes of abdominal pain reported. Will continue antibiotic coverage and decrease IVF. Diet has been advanced. 03/12-patient reports episodes of abdominal pain since diet advancement. We will place the patient n.p.o. and change p.o. antibiotics back to IV form. We will restart gentle rehydration and consult gastroenterology. Current Visit: Yes Hospitalist: Subjective Interval history: Patient seen and examined; chart reviewed. Patient is experiencing abdominal pain after the resumption of regular consistency diet on yesterday. We will consult gastroenterology to evaluate and offer recommendations. Exam - Constitutional Vitals: Period Temp Pulse Resp BP Sys/Dean Pulse Ox Last 24 Hr 96.7 F-99.0 F 60-73 16-20 148-211/70-84 95-100 General appearance: normal weight, mild distress - Head Head exam: Present: normal inspection, normocephalic, atraumatic - Eye Eye exam: Present: EOMI. Absent: conjunctival injection Pupils: Present: JACE, normal accommodation - ENT ENT exam: Present: normal exam, normal external ear exam, normal oropharynx - Neck Neck exam: Present: normal inspection. Absent: lymphadenopathy, meningismus, tenderness, thyromegaly - Respiratory Respiratory exam: Present: clear to auscultation bilaterally. Absent: rales, rhonchi, stridor, wheezes - Cardiovascular Cardiovascular exam: Present: regular rate and rhythm. Absent: carotid bruit, diastolic murmur - GI/Abdominal GI/Abdominal exam: Present: normal bowel sounds, tenderness - Extremities Exam Extremities exam: Present: normal inspection, normal capillary refill, full ROM. Absent: edema - Back Exam Back exam: Present: normal inspection - Neurological Exam Neurological exam: Present: alert, oriented X3, CN II-XII intact - Psychiatric Psychiatric exam: Present: normal affect, normal mood - Skin Skin exam: Present: normal color, warm, dry Results - Labs CBC & BMP: 03/12/17 07:25 03/12/17 07:24 Lab Results: I have reviewed the past 24 hour labs Specialty Discharge - Follow Up or Referrals <Gregory Blank - Last Filed: 03/12/17 09:22> Hospitalist: Subjective Interval history: Patient continues to experience abdominal pain. I have interviewed the patient , examined the patient, reviewed available laboratory test results. I agree with the assessment and plans of Any Jade. She will be seen in consultation by gastroenterology today. Exam - Constitutional Vitals: Period Temp Pulse Resp BP Sys/Dean Pulse Ox Last 24 Hr 96.7 F-99.0 F 60-73 16-20 148-211/70-84 95-100 Results - Labs CBC & BMP: 03/12/17 07:25 03/12/17 07:24
[2017-03-12] MEDS ORDERED: POTASSIUM CHLORIDE RIDER 10 MEQ in PREMIX 1 EACH IV PRN (09:05)
--- NOTE | 2017-03-12 09:41 | Gastrointestinal Consult Note ---
<Leti Mccracken - Last Filed: 03/12/17 09:36> Assessment and Plan (1) Right lower quadrant abdominal pain Status: Acute Assessment and plan: 03/12-several day history of right lower quadrant abdominal pain without fever or leukocytosis at this time. Prior history of diverticulitis/diverticuli in the past. Last endoscopy noted as below. CT of abdomen findings noted as below. May have clear liquid diet and advance this as tolerated. Continue to monitor present time. Plan an addendum to followed by Dr. Garcia. Current Visit: Yes History of Present Illness Chief complaint: Abdominal pain History of present illness: Ms. Triplett is a 81 year old female who was admitted on 03/08 with complaints of right lower quadrant abdominal pain 2 days. Patient spouse and daughter at bedside and provided historical information. Information is also obtained from chart review. Patient is noted to be in [facility] patient is followed regularly by Dr. Tarango. Patient was in her usual state of health until 2 days prior to admission when she had an onset of right lower quadrant pain. Initially the pain was mild in nature and she was able to continue to go about her usual day however it progressed into more severe intense pain just prior to admission. Patient was then brought to the hospital for further evaluation. She states that she only had one episode of nausea and vomiting upon admission but has not had any more of this. She denies any fever or chills associated with this. She denies any changes in her bowel patterns, denies any melena or hematochezia. She denies any recent weight loss. Patient states that she has had this pain in the past with the last time being in 2012. At that time she was followed at [place] by gastroenterology and did undergo a flex sigmoidoscopy with normal findings. She states that she did have a colonoscopy years ago prior to that by Dr. Mcclain however she does not recall any abnormal findings. She is noted to be on iron therapy for chronic anemia. On admission, she had a CT of the abdomen without contrast which showed multiple diverticuli in the sigmoid colon with no evidence of diverticulitis. She had mild leukocytosis on admission which has corrected at this time with IV Cipro and Flagyl. Patient was doing better, her medications were transitioned to oral antibiotics, and her diet was advanced to regular diet, was being considered for discharge soon. Patient did fairly well with advancement of her diet until last night when she had another onset of her right lower quadrant pain that required pain medication. The pain continues somewhat into this morning however is improved now. GI was then consulted for further recommendations. She remains with a WBC of 10,000 and is afebrile. She has no prior history of GI bleeding in the past. She has had upper endoscopy done at [place] in the past with no abnormal findings. Home Medications Medication Instructions Recorded Confirmed Type Escitalopram [Lexapro] 20 mg PO DAILY 10/12/15 03/08/17 History Fluticasone/Salmeterol 500-50 1 puff INH BID 10/12/15 03/08/17 History [Advair 500-50] Levothyroxine Tab [Synthroid Tab] 112 mcg PO DAILY@0700 10/12/15 03/08/17 History Methocarbamol Tab [Robaxin Tab] 1,000 mg PO BID 10/12/15 03/08/17 History Montelukast Tab [Singulair Tab] 10 mg PO DAILY 10/12/15 03/08/17 History Potassium Chloride [K-Tab ER] 10 meq PO DAILY 10/12/15 03/08/17 History Ranitidine Tab [Zantac Tab] 150 mg PO BEDTIME 10/12/15 03/08/17 History Simvastatin [Zocor] 20 mg PO BEDTIME 10/12/15 03/08/17 History Tiotropium Inhalation [Spiriva 18 mcg INH DAILY 10/12/15 03/08/17 History Handihaler] Triamterene/Hctz 75-50 Tab 0.5 tablet PO DAILY 10/12/15 03/08/17 History [Maxzide 75-50] clonazePAM TAB [KlonoPIN] 0.5 mg PO DAILY 10/12/15 03/08/17 History Atenolol 50 mg PO BID 03/08/17 03/08/17 History Eszopiclone 3 mg PO BEDTIME 03/08/17 03/08/17 History Ferrous Sulfate Tab [Feosol 325 mg PO DAILY 03/08/17 03/08/17 History Original Tab] Pantoprazole Tab [Protonix Tab] 40 mg PO DAILY 03/08/17 03/08/17 History cloNIDine TAB [Catapres Tab] 0.1 mg PO BID 03/08/17 03/08/17 History guaiFENesin ER TAB [Mucinex] 600 mg PO BID PRN 03/08/17 03/08/17 History metFORMIN [Glucophage] 500 mg PO BID W/MEALS 03/08/17 03/08/17 History Allergies Allergy/AdvReac Type Severity Reaction Status Date / Time Iodinated Contrast Media - Allergy Unknown Difficulty Verified 03/08/17 05:55 Oral and Breathing [Iodinated Contrast Media - IV Dye] meperidine [From Demerol] Allergy RASH Verified 03/08/17 05:56 Medical,Surgical,& Family Hx - Medical History Cardio: History of: Hypertension Endocrine: History of: Diabetes Mellitus (NIDDM) Respiratory: History of: Asthma, Bronchitis, COPD Gastrointestinal: History of: Diverticulitis/ Diverticulosis, GERD - Surgical History Abdominal Surgeries: Surgical HX of: Appendectomy, Cholecystectomy Reproductive Surgeries: Surgical HX of;: Hysterectomy Orthopedic Surgeries: Surgical HX of;: Total Knee Replacement (right knee) - Social History Smoking Status: Never smoker Frequency of Alcohol Use: None Type of Drug Use: None 12 point system: reviewed and no additional remarkable complaints except as stated - Constitutional Constitutional: Present: as per HPI - EENT Eyes: Present: as per HPI Ears: Present: as per HPI Nose, mouth and throat: Present: as per HPI - Cardiovascular Cardiovascular: Present: as per HPI - Respiratory Respiratory: Present: as per HPI - Gastrointestinal Gastrointestinal: Present: as per HPI, abdominal pain - Genitourinary Genitourinary: Present: as per HPI - Musculoskeletal Musculoskeletal: Present: as per HPI - Neurological Neurological: Present: as per HPI - Psychiatric Psychiatric: Present: as per HPI - Endocrine Endocrine: Present: as per HPI - Hematologic/Lymphatic Hematologic/Lymphatic: Present: as per HPI Exam - Constitutional Vitals: Period Temp Pulse Resp BP Sys/Dean Pulse Ox Last 24 Hr 96.7 F-99.0 F 60-73 16-20 148-211/70-84 95-100 General appearance: normal weight, no acute distress - Head Head exam: Present: normal inspection, normocephalic - Eye Eye exam: Present: other (Lids and conjunctivae are unremarkable). Absent: scleral icterus - ENT ENT exam: Present: normal exam, normal oropharynx - Neck Neck exam: Present: normal inspection - Respiratory Respiratory exam: Present: clear to auscultation bilaterally. Absent: rales, rhonchi, wheezes - Cardiovascular Cardiovascular exam: Present: regular rate and rhythm. Absent: diastolic murmur , JVD, systolic murmur - GI/Abdominal GI/Abdominal exam: Present: normal bowel sounds, tenderness (Right lower), soft. Absent: ascites, distended, mass, organomegaly - Extremities Exam Extremities exam: Present: normal inspection, full ROM - Back Exam Back exam: Present: normal inspection - Neurological Exam Neurological exam: Present: alert, oriented X3 - Psychiatric Psychiatric exam: Present: normal affect, normal mood - Skin Skin exam: Present: normal color, warm, dry Results - Labs CBC & BMP: 03/12/17 07:25 03/12/17 07:24 Lab Results: I have reviewed the past 24 hour labs - Diagnostic Findings Procedure: CT Abdomen and Pelvis: report reviewed by me Specialty Discharge - Follow Up or Referrals <Adam Garcia - Last Filed: 03/12/17 22:27> History of Present Illness History of present illness: Ms. Triplett is a 81 year old female Exam - Constitutional Vitals: Period Temp Pulse Resp BP Sys/Dean Pulse Ox Last 24 Hr 96.7 F-99.9 F 61-83 16-20 149-170/65-88 90-99 Results - Labs CBC & BMP: 03/12/17 07:25 03/12/17 07:24
[2017-03-12] MEDS: metroNIDAZOLE INJ 500 MG in PREMIX 1 EACH IV SCH (09:56)
[2017-03-12] MEDS: METHOCARBAMOL 500 MG TABLET PO SCH ×2 (10:02→21:27)
[2017-03-12] MEDS: LACTOBACILLUS RHAMNOSUS GG CAPSULE PO SCH ×2 (10:02→21:27)
[2017-03-12] MEDS: ESCITALOPRAM 10 MG TABLET PO SCH (10:02)
[2017-03-12] MEDS: cloNIDine 0.1 MG TABLET PO SCH ×2 (10:02→21:28)
[2017-03-12] MEDS: POTASSIUM CHLORIDE 10 MEQ TABLET PO SCH (10:02)
[2017-03-12] MEDS: MONTELUKAST 10 MG TABLET PO SCH (10:02)
[2017-03-12] MEDS: TRIAMTERENE/HCTZ 37.5-25 MG TABLET PO SCH (10:03)
[2017-03-12] MEDS: FLUTICASONE/SALMETEROL 500-50 DISKUS 14 DOSE INH SCH ×2 (10:03→21:26)
[2017-03-12] MEDS: ATENOLOL 50 MG TABLET PO SCH ×2 (10:03→21:27)
[2017-03-12] MEDS: clonazePAM 0.5 MG TABLET PO SCH (10:03)
[2017-03-12] MEDS: SODIUM CHLORIDE 0.9% 1,000 ML IV SCH (10:04)
[2017-03-12] MEDS: PANTOPRAZOLE 40 MG VIAL IV SCH (10:05)
[2017-03-12] MEDS: VALSARTAN 80 MG TABLET PO SCH (10:11)
[2017-03-12] MEDS: CIPROFLOXACIN INJ 400 MG in PREMIX 1 EACH IV SCH (11:20)
[2017-03-12] MEDS: CIPROFLOXACIN 500 MG TABLET PO SCH ×2 (15:22→21:28)
[2017-03-12] MEDS: POTASSIUM CHLORIDE 20 MEQ TABLET PO SCH (15:22)
[2017-03-12] MEDS: MAGNESIUM OXIDE 400 MG TABLET PO SCH ×2 (15:22→21:28)
[2017-03-12] MEDS: metroNIDAZOLE 500 MG TABLET PO SCH (18:03)
--- NOTE | 2017-03-12 19:01 | XRay Report ---
Right shoulder, 2 views. Indication: Shoulder pain. There is superior migration of the humeral head consistent with chronic rotator cuff injury. There are degenerative changes at the acromioclavicular joint and inferior glenohumeral joint. No fracture or dislocation. No lytic or blastic lesion. Impression: Moderately severe osteoarthritis. Findings suggesting chronic rotator cuff injury. PROCEDURE INTERPRETED AT [facility] DEPARTMENT OF RADIOLOGY Final Report Signed by: Dr. Nubia Millan
[2017-03-12] MEDS: FAMOTIDINE 20 MG TABLET PO SCH (21:27)
[2017-03-13] MEDS: metroNIDAZOLE 500 MG TABLET PO SCH ×3 (00:30→11:20)
[2017-03-13] MEDS: IPRATROPIUM 500 MCG/2.5 ML NEB RESP TX SCH ×4 (07:20→19:25)
[2017-03-13 07:38] LABS: Basophils % 0.4 % (0.0-0.8); Eosinophils # 0.1 10*3/uL (0.0-0.87); Eosinophils % 1.2 % (0.00-10.9); Hematocrit 35.2 VOL% (35.7-47.0); Immature Granulocytes % 0.2 %; Immature Granulocytes Absolute 0.02 #; Lymphocytes # 3.4 10*3/uL (1.4-4.0); Lymphocytes % 37.6 % (21.3-54.2); Mean Corpuscular HGB Conc 34.1 GM/DL (32-36); Mean Corpuscular Hemoglobin 31 PG (27-34); Mean Corpuscular Volume 91.4 FL (87-102); Mean Platelet Volume 12.1 FL (9.6-12.0); Monocytes # 1.5 10*3/uL (0.11-0.8); Neutrophils # 4.1 10*3/uL (1.4-7.4); Neutrophils % 44.6 % (38.7-73.9); Platelet Count 195 T/CUMM (130-400); Red Blood Count 3.85 MC/CUMM (3.8-5.5); Red Cell Distribution Width 11.8 % (9.3-17.3); White Blood Count 9.2 T/CUMM (4-12)
[2017-03-13 08:01] LABS: Band Neutrophils 1 % (0-10); Eosinophils 4 % (0-10); Hypochromasia Slight; Lymphocytes 41 % (20-55); Microcytosis 1+; Segmented Neutrophils 46 % (50-85); Total Cells Counted 100
[2017-03-13 08:02] LABS: Platelet Estimate Adequate
[2017-03-13 08:13] LABS: Albumin 2.6 G/DL (3.4-5.0); Bilirubin,Total 0.5 MG/DL (0.2-1.0); Calcium 8.7 MG/DL (8.5-10.1); Magnesium 1.6 MG/DL (1.8-2.4); Osmolality,Calculated 274.7 MOS/KG (273-304); Potassium 3.7 MMOL/L (3.5-5.1); Total Protein 5.3 G/DL (6.4-8.3)
[2017-03-13] MEDS: INSULIN LISPRO 100 UNIT/ML SUBCUT SCH ×4 (08:14→20:38)
--- NOTE | 2017-03-13 08:41 | Gastrointestinal Progress Note ---
<KaykayLeti Brianna - Last Filed: 03/13/17 08:39> Assessment and Plan (1) Right lower quadrant abdominal pain Status: Acute Assessment and plan: 03/13-abdominal pain continues at present time. For PICC line placement this morning. Afebrile. Tolerating clear liquids. Continue to monitor this time. Plan an addendum to followed by Dr. Garcia. 03/12-several day history of right lower quadrant abdominal pain without fever or leukocytosis at this time. Prior history of diverticulitis/diverticuli in the past. Last endoscopy noted as below. CT of abdomen findings noted as below. May have clear liquid diet and advance this as tolerated. Continue to monitor present time. Plan an addendum to followed by Dr. Garcia. Current Visit: Yes Gastroenterology - PN: Subj Interval history: CC: Abdominal pain Patient is seen awake alert sitting up in bed. Daughter is at bedside. Patient is noted to be n.p.o. this morning for PICC line placement. Apparently nursing staff unable to obtain IV access with multiple attempts. Patient's daughter states that she had a bad day on yesterday with continued abdominal pain and some reported nausea. She also states that she took some [place] which caused her some increased confusion. Dr. Blank has ordered a PICC line for today to continue with IV antibiotics. She is afebrile without leukocytosis. Abdomen is soft, nontender palpation. Patient does state that her pain is improved from yesterday. ROS: Denies shortness breath or chest pain Exam (Progress Note) - Constitutional Vitals: Period Temp Pulse Resp BP Sys/Dean Pulse Ox Last 24 Hr 98.0 F-99.9 F 61-83 18-22 139-170/64-88 90-100 General appearance: normal weight, no acute distress - Head Head exam: Present: normal inspection, normocephalic - Eye Eye exam: Present: other (Lids and conjunctivae are unremarkable). Absent: scleral icterus - ENT ENT exam: Present: normal exam, normal oropharynx - Neck Neck exam: Present: normal inspection - Respiratory Respiratory exam: Present: clear to auscultation bilaterally. Absent: rales, rhonchi, wheezes - Cardiovascular Cardiovascular exam: Present: regular rate and rhythm. Absent: diastolic murmur , JVD, systolic murmur - GI/Abdominal GI/Abdominal exam: Present: normal bowel sounds, soft. Absent: ascites, distended, mass, organomegaly, tenderness - Extremities Exam Extremities exam: Present: normal inspection, full ROM - Back Exam Back exam: Present: normal inspection - Neurological Exam Neurological exam: Present: alert, oriented X3 - Psychiatric Psychiatric exam: Present: normal affect, normal mood - Skin Skin exam: Present: normal color, warm, dry Results - Labs CBC & BMP: 03/13/17 06:06 03/13/17 06:06 Lab Results: I have reviewed the past 24 hour labs Specialty Discharge - Follow Up or Referrals <Adam Garcia - Last Filed: 03/13/17 22:15> Exam (Progress Note) - Constitutional Vitals: Period Temp Pulse Resp BP Sys/Dean Pulse Ox Last 24 Hr 98.2 F-99.1 F 64-82 18-22 120-142/64-74 90-100 Results - Labs CBC & BMP: 03/13/17 06:06 03/13/17 06:06
[2017-03-13] MEDS: FLUTICASONE/SALMETEROL 500-50 DISKUS 14 DOSE INH SCH ×2 (09:13→20:21)
[2017-03-13] MEDS: LEVOTHYROXINE 112 MCG TABLET PO SCH (09:13)
[2017-03-13] MEDS: clonazePAM 0.5 MG TABLET PO SCH (09:13)
[2017-03-13] MEDS: POTASSIUM CHLORIDE 20 MEQ TABLET PO SCH (09:13)
[2017-03-13] MEDS: CIPROFLOXACIN 500 MG TABLET PO SCH (09:13)
[2017-03-13] MEDS: cloNIDine 0.1 MG TABLET PO SCH ×2 (09:13→20:21)
[2017-03-13] MEDS: LACTOBACILLUS RHAMNOSUS GG CAPSULE PO SCH ×2 (09:13→20:21)
[2017-03-13] MEDS: VALSARTAN 80 MG TABLET PO SCH (09:13)
[2017-03-13] MEDS: ESCITALOPRAM 10 MG TABLET PO SCH (09:14)
[2017-03-13] MEDS: ATENOLOL 50 MG TABLET PO SCH ×2 (09:14→20:21)
[2017-03-13] MEDS: MONTELUKAST 10 MG TABLET PO SCH (09:14)
[2017-03-13] MEDS: METHOCARBAMOL 500 MG TABLET PO SCH ×2 (09:14→20:21)
[2017-03-13] MEDS: TRIAMTERENE/HCTZ 37.5-25 MG TABLET PO SCH (09:14)
[2017-03-13] MEDS: MAGNESIUM OXIDE 400 MG TABLET PO SCH ×2 (09:14→20:23)
[2017-03-13] MEDS: PANTOPRAZOLE 40 MG VIAL IV SCH (09:14)
--- NOTE | 2017-03-13 11:14 | Hospitalist Progress Note ---
Assessment and Plan (1) Right lower quadrant abdominal pain Status: Acute Assessment and plan: Her pain appears better today. She is not experiencing nausea and vomiting. She has begun a clear liquid diet. Current Visit: Yes (2) Diverticulitis Status: Acute Assessment and plan: See above. Current Visit: Yes Qualifiers: Diverticulitis site: unspecified part of intestinal tract Diverticulitis bleeding: without bleeding Diverticulitis complication: without perforation or abscess Qualified Code(s): K57.92 - Diverticulitis of intestine, part unspecified, without perforation or abscess without bleeding Hospitalist: Subjective Interval history: Patient states that she is tolerating clear liquids. She has not experienced any nausea or vomiting today. She is not experiencing any abdominal pain. I have discussed with the family and the patient that our plans are to insert a peripheral IV and maintain hydration. If she is able to tolerate a liquid diet for the rest of today, she can go home tomorrow. Exam - Constitutional Vitals: Period Temp Pulse Resp BP Sys/Dean Pulse Ox Last 24 Hr 98.0 F-99.9 F 64-83 18-22 139-170/64-88 90-100 General appearance: no acute distress - Head Head exam: Present: normal inspection - Neck Neck exam: Present: normal inspection - Respiratory Respiratory exam: Present: clear to auscultation bilaterally - Cardiovascular Cardiovascular exam: Present: regular rate and rhythm - GI/Abdominal GI/Abdominal exam: Present: normal bowel sounds, soft, other (Nontender with no palpable masses or hepatosplenomegaly.) - Extremities Exam Extremities exam: Present: normal inspection - Skin Skin exam: Present: normal color, warm, intact Results - Labs CBC & BMP: 03/13/17 06:06 03/13/17 06:06 Specialty Discharge - Follow Up or Referrals
[2017-03-13] MEDS: LIDOCAINE 5% PATCH TRANSDERM SCH (11:20)
[2017-03-13] MEDS: CIPROFLOXACIN INJ 400 MG in PREMIX 1 EACH IV SCH (14:26)
[2017-03-13] MEDS ORDERED: INSULIN LISPRO 100 UNIT/ML SUBCUT ONE (15:18)
[2017-03-13] MEDS: metroNIDAZOLE INJ 500 MG in PREMIX 1 EACH IV SCH ×2 (17:02→23:11)
[2017-03-13] MEDS: FAMOTIDINE 20 MG TABLET PO SCH (20:21)
[2017-03-13] MEDS: KETOROLAC 30 MG/1 ML VIAL IV PRN (20:55)
[2017-03-14] MEDS: CIPROFLOXACIN INJ 400 MG in PREMIX 1 EACH IV SCH (02:18)
[2017-03-14] MEDS: KETOROLAC 30 MG/1 ML VIAL IV PRN (04:27)
[2017-03-14] MEDS: metroNIDAZOLE INJ 500 MG in PREMIX 1 EACH IV SCH ×2 (05:04→11:45)
[2017-03-14] MEDS: LEVOTHYROXINE 112 MCG TABLET PO SCH (06:09)
[2017-03-14] MEDS: SODIUM CHLORIDE 0.9% 1,000 ML IV SCH (06:11)
[2017-03-14] MEDS: IPRATROPIUM 500 MCG/2.5 ML NEB RESP TX SCH ×2 (07:53→11:08)
[2017-03-14 07:58] VITALS: BP 140/78
--- NOTE | 2017-03-14 08:47 | Gastrointestinal Progress Note ---
<KaykayLeti Brianna - Last Filed: 03/14/17 08:37> Assessment and Plan (1) Right lower quadrant abdominal pain Status: Acute Assessment and plan: 03/14-abdominal pain improved. Tolerating diet at this time. No nausea or vomiting. Okay to discharge from GI standpoint. We will plan colonoscopy in several weeks after patient has convalesced. Plan an addendum to followed by Dr. Garcia. 03/13-abdominal pain continues at present time. For PICC line placement this morning. Afebrile. Tolerating clear liquids. Continue to monitor this time. Plan an addendum to followed by Dr. Garcia. 03/12-several day history of right lower quadrant abdominal pain without fever or leukocytosis at this time. Prior history of diverticulitis/diverticuli in the past. Last endoscopy noted as below. CT of abdomen findings noted as below. May have clear liquid diet and advance this as tolerated. Continue to monitor present time. Plan an addendum to followed by Dr. Garcia. Gastroenterology - PN: Subj Interval history: CC: RLQ abdominal pain Pt is awake and alert, sitting up in chair with family at bedside. States that she is feeling better at this time with less abdominal pain. She denies any nausea or vomiting. She is tolerating her diet well at this time. States that she feels like she can have this advanced. She is afebrile without leukocytosis. Abdomen soft, nontender. ROS: Denies SOB or chest pain Exam (Progress Note) - Constitutional Vitals: Period Temp Pulse Resp BP Sys/Dean Pulse Ox Last 24 Hr 97.3 F-99.1 F 60-73 16-22 120-140/72-80 91-99 General appearance: normal weight, no acute distress - Head Head exam: Present: normal inspection, normocephalic - Eye Eye exam: Present: other (lids and conjunctiva unremarkable). Absent: scleral icterus - ENT ENT exam: Present: normal exam, normal oropharynx - Neck Neck exam: Present: normal inspection - Respiratory Respiratory exam: Present: clear to auscultation bilaterally. Absent: rales, rhonchi, wheezes - Cardiovascular Cardiovascular exam: Present: regular rate and rhythm. Absent: diastolic murmur , JVD, systolic murmur - GI/Abdominal GI/Abdominal exam: Present: normal bowel sounds, soft. Absent: ascites, distended, mass, organomegaly, tenderness - Extremities Exam Extremities exam: Present: normal inspection, full ROM - Back Exam Back exam: Present: normal inspection - Neurological Exam Neurological exam: Present: alert, oriented X3 - Psychiatric Psychiatric exam: Present: normal affect, normal mood - Skin Skin exam: Present: normal color, warm, dry Results - Labs CBC & BMP: 03/13/17 06:06 03/13/17 06:06 Lab Results: I have reviewed the past 24 hour labs Specialty Discharge - Follow Up or Referrals Follow up with: Adam Garcia MD [Physician] - 2 Weeks Etelvina Whiting MD [Physician] - 03/25/17 10:00 am <Adam Garcia - Last Filed: 03/14/17 21:18> Exam (Progress Note) - Constitutional Vitals: Period Temp Pulse Resp BP Sys/Dean Pulse Ox Last 24 Hr 97.3 F-98.6 F 60-88 16-20 129-140/72-80 95-99 Results - Labs CBC & BMP: 03/13/17 06:06 03/13/17 06:06
[2017-03-14] MEDS: LACTOBACILLUS RHAMNOSUS GG CAPSULE PO SCH (08:50)
[2017-03-14] MEDS: VALSARTAN 80 MG TABLET PO SCH (08:50)
[2017-03-14] MEDS: TRIAMTERENE/HCTZ 37.5-25 MG TABLET PO SCH (08:50)
[2017-03-14] MEDS: clonazePAM 0.5 MG TABLET PO SCH (08:51)
[2017-03-14] MEDS: MAGNESIUM OXIDE 400 MG TABLET PO SCH (08:51)
[2017-03-14] MEDS: PANTOPRAZOLE 40 MG VIAL IV SCH (08:51)
[2017-03-14] MEDS: cloNIDine 0.1 MG TABLET PO SCH (08:51)
[2017-03-14] MEDS: MONTELUKAST 10 MG TABLET PO SCH (08:51)
[2017-03-14] MEDS: ESCITALOPRAM 10 MG TABLET PO SCH (08:51)
[2017-03-14] MEDS: METHOCARBAMOL 500 MG TABLET PO SCH (08:51)
[2017-03-14] MEDS: ATENOLOL 50 MG TABLET PO SCH (08:51)
[2017-03-14] MEDS: POTASSIUM CHLORIDE 20 MEQ TABLET PO SCH (08:51)
[2017-03-14] MEDS: FLUTICASONE/SALMETEROL 500-50 DISKUS 14 DOSE INH SCH (08:55)
[2017-03-14] MEDS: LIDOCAINE 5% PATCH TRANSDERM SCH (08:55)
[2017-03-14] MEDS: INSULIN LISPRO 100 UNIT/ML SUBCUT SCH (10:28)
--- NOTE | 2017-03-14 10:57 | Discharge Summary ---
Hospital Course - Hospital Course Hospital Course: The patient was admitted on March 08 with clinical diverticulitis although abdominal CT was unremarkable. She was treated with Cipro and Flagyl with gradual steady clinical improvement. She tolerated oral feeding well yesterday and today. GI has cleared her for discharge. We will discharge her on 5 more days of antibiotics. She will follow-up with GI in a week or 2. They have recommended a colonoscopy in the future. - Time spent with patient Time with patient DS: Greater than 30 minutes Diagnosis - Discharge Diagnosis (1) Diverticulitis Status: Acute Specialty Discharge - Follow Up or Referrals Discharge Plan - Discharge Data Disposition: Home Health Service Condition at Discharge: Stable Discharge Diet: regular diet Activity: resume usual activities as tolerated Hygiene: no restrictions - Discharge Medications New Ciprofloxacin Tab [Cipro Tab] 500 mg PO BID #10 tablet metroNIDAZOLE TAB [Flagyl Cap/Tab] 500 mg PO TID #15 tablet Continue Escitalopram [Lexapro] 20 mg PO DAILY Tiotropium Inhalation [Spiriva Handihaler] 18 mcg INH DAILY clonazePAM TAB [KlonoPIN] 0.5 mg PO DAILY Methocarbamol Tab [Robaxin Tab] 1,000 mg PO BID Levothyroxine Tab [Synthroid Tab] 112 mcg PO DAILY@0700 Montelukast Tab [Singulair Tab] 10 mg PO DAILY Fluticasone/Salmeterol 500-50 [Advair 500-50] 1 puff INH BID Triamterene/Hctz 75-50 Tab [Maxzide 75-50] 0.5 tablet PO DAILY Simvastatin [Zocor] 20 mg PO BEDTIME Potassium Chloride [K-Tab ER] 10 meq PO DAILY Ranitidine Tab [Zantac Tab] 150 mg PO BEDTIME guaiFENesin ER TAB [Mucinex] 600 mg PO BID PRN PRN Reason: Congestion cloNIDine TAB [Catapres Tab] 0.1 mg PO BID Atenolol 50 mg PO BID metFORMIN [Glucophage] 500 mg PO BID W/MEALS Pantoprazole Tab [Protonix Tab] 40 mg PO DAILY Eszopiclone 3 mg PO BEDTIME Ferrous Sulfate Tab [Feosol Original Tab] 325 mg PO DAILY - Follow Up or Referral Follow Up: Adam Garcia MD [Physician] - 2 Weeks - Forms/Instructions Instructions: Diverticulitis Diet (GEN) Exam - Constitutional Vitals: Period Temp Pulse Resp BP Sys/Dean Pulse Ox Last 24 Hr 97.3 F-99.1 F 60-73 16-22 120-140/72-80 91-99 - Cardiovascular Cardiovascular exam: Present: regular rate and rhythm - GI/Abdominal GI/Abdominal exam: Present: soft. Absent: tenderness Discharge Results Procedures and tests throughout hospitalization: Pending Orders 03/13/17 US guide vascular access Routine 03/13/17 14:19 IR PICC line insertion Routine Labs on day of discharge: Labs from last 24 hours 03/14/17 03/13/17 03/13/17 08:16 19:46 17:06 POC Glucose 115 H 107 H 111 H 03/13/17 03/13/17 03/13/17 15:16 14:05 11:11 POC Glucose 146 H 231 H 105 DS: Provider Date of admission: 03/08/17 12:36 Primary care physician: . No PCP Attending physician on admission: Tatum Long MD Consults: 03/08/17 09:28 Consult to Physician [CONS] Routine Comment: abd pain Consulting Provider: Ramone Carlisle Person Notified: md grewal Date Notified: 03/08/17 Time Notified: 15:09 03/11/17 12:16 Consult to Occupational Therapy [CONS] Routine Reason for Occupational Therapy: Evaluate and Treat Consult to Physical Therapy [CONS] Routine Reason for Physical Therapy: Evaluate and Treat 03/12/17 08:59 Consult to Physician [CONS] Routine Comment: [facility] pt, diverticulitis Consulting Provider: Adam Garcia When should Consulting Provider be notified: Now Consult to Specialist Group: Gastroenterology Person Notified: MARY JENKINS Date Notified: 03/12/17 Time Notified: 09:39 03/13/17 09:58 Consult to Case Mgmt/Social Srvs [CONS] Routine Reason for Case Mgmt/Social Srvs: Rehab Other Home Health Discharging clinician: Gen Avilez MD
== END 2017-03-14 12:37 | disposition home health service (06) | DRG 392 ==
LOC: N.ED 05:33 → SUATTDRO 12:36 → N.EDINP 12:36 → N.5E 13:46
PROVIDERS: ADMIT Hospitalist; ATTEND Family Medicine